=== PATIENT | female | born 1995 | race Asian ===

== ENCOUNTER 2017-07-06 21:04 | Emergency (ER) | payer BC ==
[~2017-07-06] VITALS: Ht 154.9 cm; Wt 64.4 kg
[2017-07-06 21:20] VITALS: TEMP 36.9; Ht 154.9 cm; Wt 64.4 kg
--- NOTE | 2017-07-06 21:49 | EMERGENCY ROOM VISIT NOTE ---
History First contact with patient: 21:24 Chief Complaint: SORETHROAT Stated Complaint: SORE THROAT, EARS HURT, COUGH, MAY BE STREP History of Present Illness The patient is a 22 year old female who presents to the Emergency Room with complaints of a severe sore throat for the last 3 days. The patient denies any fever. She also notes bilateral ear pain left greater than right. She has been taking ibuprofen with minimal relief. Her symptoms started last week with a productive cough. That has dissipated. She denies any shortness of breath. No severe headache, neck pain, nausea, vomiting or abdominal pain. Review of Systems 10 system review performed and negative unless noted in HPI or below Past Medical/Surgical History Asthma Social History Smoking Status: Never Smoker Occupation Status: [employer] student Current/Historical Medications Scheduled Control Pills ( Control Pills), 1 TAB PO DAILY Cefdinir (Omnicef), 300 MG PO Q12H Multiple Vitamins W/ Minerals (Adult Gummy), 2 TABS PO DAILY Physical Exam Vital Signs Date Time Temp Pulse Resp B/P (MAP) Pulse Ox O2 Delivery O2 Flow Rate FiO2 07/06/17 22:00 90 20 124/71 99 Room Air 07/06/17 21:23 Room Air 07/06/17 21:20 36.9 94 18 125/86 99 Room Air Physical Exam VITALS: Vitals are noted on the nurse's note and reviewed by myself. Vital signs stable. GENERAL: 22-year-old female, in no acute distress, nondiaphoretic, well- developed well-nourished. SKIN: The skin was without rashes, erythema, edema, or bruising. HEAD: Normocephalic atraumatic. EARS: External auditory canals clear, tympanic membranes are erythematous left greater than right. There is an effusion in the left. Scar tissue noted on the right tympanic membrane. EYES: Pupils equal round and reactive to light and accommodation. C MOUTH: Mucous membranes moist. Tonsils are enlarged with white exudate bilaterally.. Airway patent. Tongue does not deviate. NECK: Supple without nuchal rigidity. Lymphadenopathy noted in the anterior cervical chain bilaterally. Cervical spine is nontender. No JVD. HEART: Regular rate and rhythm without murmurs gallops or rubs. LUNGS: Clear to auscultation bilaterally without wheezes, rales or rhonchi. No accessory muscle use. ABDOMEN: Positive bowel sounds x 4.Soft, nontender, without organomegaly. No guarding or rebound tenderness. MUSCULOSKELETAL: No muscle atrophy, erythema, or edema noted. Strength 5/5 throughout. NEURO: Patient was alert and oriented to person place and time. Normal sensation to touch. No focal neurological deficits. Medical Decision & Procedures ED Course The patient was seen and examined A rapid strep was performed The results were shared with the patient. She voiced understanding. She was given discharge instructions. She voiced understanding, and was discharged in good condition Medical Decision Differential diagnosis: Bronchitis, pneumonia, strep pharyngitis, viral pharyngitis, influenza , otitis media The patient was seen and examined. She was nontoxic in appearance. Afebrile. Tonsils were erythematous, enlarged and had white exudate bilaterally. No involvement of the soft palate. No signs of abscess. Her left tympanic membrane was particularly inflamed. For this reason, I opted to treat the patient with antibiotics. A strep culture was sent to the lab. She was advised to rest, drink plenty of fluids and continue Tylenol and ibuprofen for pain. She will follow-up with [facility] if her symptoms do not improve within the next few days. She agrees to return here with any new or worsening symptoms This chart was completed in part utilizing [employer] Speech Voice Recognition software. Attempts were made to minimize the grammatical errors, random word insertions, pronoun errors and incomplete sentences. Any formal questions or concerns about the content, text or information contained within the body of this dictation should be directly addressed to the provider for clarification. Medication Reconcilliation Current Medication List: was personally reviewed by id Blood Pressure Screening Patient's blood pressure: Normal blood pressure Impression Primary Impression: Otitis media Departure Information Dispostion Home / Self-Care Condition GOOD Prescriptions Cefdinir (OMNICEF) 300 Mg Cap 300 MG PO Q12H for 10 Days, #20 CAP Prov: Sana Rolon PA-C 07/06/17 Referrals No Doctor, Assigned (PCP) Patient Instructions ED Otitis Media Acute Adult, My [facility] Additional Instructions You were evaluated in the emergency department for a sore throat and ear pain the initial strep test is negative. It appears that you do have an infection in your left ear. Please finish the entire course of antibiotics. Ibuprofen 800 mg and/or Tylenol 1000 mg every 8 hours for pain/fever You may also alternate these medications for more effective pain relief: Ibuprofen --4 HRS--> Tylenol --4 HRS--> ibuprofen --4 HRS--> Tylenol .... It is important to stay well hydrated and get plenty of rest. Avoid alcohol. Please follow-up with [facility] if there is no improvement in the next 5 days. Please return to the emergency department with any new or worsening symptoms.
[2017-07-06] MEDS ORDERED: CEFD300C2 PO (21:52)
[2017-07-06] MEDS ORDERED: BCPILLS PO (21:59)
[2017-07-06] MEDS ORDERED: MULT1CHW4 PO (21:59)
[2017-07-06 22:00] VITALS: BP 124/71; PULSE 90; O2SAT 99
== END 2017-07-06 22:00 | disposition home or self-care (01) ==
LOC: C.EDB 21:08 → C.EDD 22:00
DX: H65.92 Unspecified nonsuppurative otitis media, left ear (principal); H66.91 Otitis media, unspecified, right ear; Z79.3 Long term (current) use of hormonal contraceptives; Z79.899 Other long term (current) drug therapy